=== PATIENT | male | born 1940 | race Caucasian/White ===

== ENCOUNTER → 2017-08-08 | Outpatient (CLI) | payer OTHER | LOC: FIMAGING 09:51 | PROVIDERS: ATTEND Family Medicine | DX: M19.012 Primary osteoarthritis, left shoulder (principal); M51.36 Other intervertebral disc degeneration, lumbar region; M51.37 Other intervertebral disc degeneration, lumbosacral region; M43.16 Spondylolisthesis, lumbar region; M43.17 Spondylolisthesis, lumbosacral region ==

== ENCOUNTER → 2017-10-28 | Outpatient (CLI) | payer OTHER | LOC: FIMAGING 10:58 | PROVIDERS: ATTEND Family Medicine | DX: R05 Cough (principal); I11.9 Hypertensive heart disease without heart failure; R09.89 Other specified symptoms and signs involving the circulatory and respiratory systems ==

== ENCOUNTER → 2017-12-18 | Outpatient (CLI) | payer OTHER | LOC: FIMAGING 10:19 | PROVIDERS: ATTEND Family Medicine | DX: R05 Cough (principal) ==

== ENCOUNTER 2018-09-12 14:21 | Day surgery (SDC) | payer OTHER ==
[2018-09-12] MEDS ORDERED: LIDOCAINE 1% 300 MG/30 ML SDV SC ONE (14:24)
[2018-09-12] MEDS ORDERED: LIDOCAINE 1% 300 MG/30 ML SDV ONE (16:04)
[2018-09-12] MEDS ORDERED: fentaNYL 100 MCG/2 ML INJ ONE (16:05)
[2018-09-12] MEDS ORDERED: MIDAZOLAM 2 MG/2 ML VIAL ONE (16:05)
--- NOTE | 2018-09-13 04:19 | CPIP ---
DATE OF PROCEDURE: 09/12/2018 PROCEDURE: LINQ removal. INDICATIONS: LINQ end of battery life. COMPLICATIONS: None. DESCRIPTION OF PROCEDURE: Informed consent was obtained. N.p.o. status was confirmed. The patient was brought to the catheterization laboratory and prepped and draped in a sterile fashion. Adequate conscious sedation was achieved with fentanyl and Versed IV. 1% lidocaine was used for local anesthe abhishek over the right parasternal region. The [employer] LINQ device was explanted. The incision was cl osed with 2 miguelito. A sterile dressing applied. CONCLUSION: Successful explant of LINQ device. Serial number [id number]. Follow up in the office in 1 week for staple removal. Patient currently in stable condition. /[id number]/MODL
== END 2018-09-12 17:47 | disposition home or self-care (01) ==
LOC: FCATH 14:21
PROVIDERS: ATTEND Internal Medicine Cardiovascular Disease
PROC: 0JPT02Z Removal of Monitoring Device from Trunk Subcutaneous Tissue and Fascia, Open Approach (ICD-10-PCS; principal; 2018-09-12)
DX: Z45.09 Encounter for adjustment and management of other cardiac device (principal); I48.0 Paroxysmal atrial fibrillation; I10 Essential (primary) hypertension; E78.5 Hyperlipidemia, unspecified; I25.10 Atherosclerotic heart disease of native coronary artery without angina pectoris
CPT/HCPCS: J2250; J3010